=== PATIENT | female | born 1960 | race Caucasian/White ===

== ENCOUNTER 2019-02-03 10:40 | Day surgery (SDC) | payer OTHER ==
[2019-02-03 12:32] VITALS: TEMP 98.6; BMI 21.9
[2019-02-03 14:36] VITALS: BP 108/58; PULSE 73
--- NOTE | 2019-02-05 14:22 | PATH ---
Surgical Pathology Report Patient Name: MAYLIN SOLIS [facility]. Rec. #: [id number] /Age/Gender: 1960 (Age: 58) / F Account: [id number] Location: [facility] Taken: 02/03/2019 Received: 02/03/2019 Reported: 02/05/2019 Physicians: Bernie Bay M.D. Specimen(s) Received A: SECOND PORTION DUODENUM B: ANTRUM C: GE JUNCTION D: MIDDLE ESOPHAGUS Clinical History Dysphagia Postoperative diagnosis: Gastritis Final Diagnosis A. SECOND PORTION DUODENUM, BIOPSY: DUODENUM MUCOSA WITH NO SIGNIFICANT PATHOLOGIC CHANGE. NO HISTOLOGIC EVIDENCE OF CELIAC DISEASE. B. GASTRIC ANTRUM, BIOPSY: GASTRIC MUCOSA WITH CHRONIC GASTRITIS. IMMUNOSTAIN FOR H. PYLORI IS NEGATIVE. NEGATIVE FOR INTESTINAL METAPLASIA. C. GE JUNCTION, BIOPSY: COLUMNAR (GASTRIC) EPITHELIUM WITH MILD CHRONIC INFLAMMATION. NEGATIVE FOR INTESTINAL METAPLASIA. D. MID ESOPHAGUS, BIOPSY: ESOPHAGEAL MUCOSA WITH NO SIGNIFICANT PATHOLOGIC CHANGE. NO HISTOLOGIC EVIDENCE OF EOSINOPHILIC ESOPHAGITIS. Electronically Signed Angely Pennington M.D. Gross Description A. Received in formalin, labeled "biopsy second portion of duodenum" is a figueroa, irregular portion of soft tissue measuring 0.4 cm. in greatest dimension. The specimen is submitted in toto in one cassette. B. Received in formalin, labeled "biopsy gastric antrum" is a figueroa, irregular portion of soft tissue measuring 0.3 cm. in greatest dimension. The specimen is submitted in toto in one cassette. C. Received in formalin, labeled "biopsy GE junction" is a figueroa, irregular portion of soft tissue measuring 0.5 cm. in greatest dimension. The specimen is submitted in toto in one cassette. D. Received in formalin, labeled "biopsy midesophagus" is a figueroa, irregular portion of soft tissue measuring 0.3 cm. in greatest dimension. The specimen is submitted in toto in one cassette. 02/04/2019 saudi02/04/2019
== END 2019-02-03 14:25 | disposition home or self-care (01) ==
LOC: FASU-ENDO 10:40
PROVIDERS: ATTEND Internal Medicine Gastroenterology
PROC: 0DB68ZX Excision of Stomach, Via Natural or Artificial Opening Endoscopic, Diagnostic (ICD-10-PCS; 2019-02-03)
PROC: 0DB48ZX Excision of Esophagogastric Junction, Via Natural or Artificial Opening Endoscopic, Diagnostic (ICD-10-PCS; 2019-02-03)
PROC: 0DB98ZX Excision of Duodenum, Via Natural or Artificial Opening Endoscopic, Diagnostic (ICD-10-PCS; principal; 2019-02-03 13:32)
DX: K29.50 Unspecified chronic gastritis without bleeding (principal); K20.9 Esophagitis, unspecified; R10.13 Epigastric pain; R13.10 Dysphagia, unspecified
CPT/HCPCS: 88305-TC; 88342-TC

== ENCOUNTER 2019-03-17 09:55 | Day surgery (SDC) | payer OTHER ==
[2019-02-01 16:39] VITALS: BMI 21.9
[2019-03-17 10:32] VITALS: TEMP 97.4
[2019-03-17] MEDS ORDERED: PROPOFOL 20 ML ONE ×2 (10:54)
[2019-03-17 11:42] VITALS: BP 106/66; PULSE 88
--- NOTE | 2019-03-19 15:42 | PATH ---
Surgical Pathology Report Patient Name: MAYLIN SOLIS [facility]. Rec. #: [id number] /Age/Gender: 1960 (Age: 58) / F Account: [id number] Location: [facility] Taken: 03/17/2019 Received: 03/17/2019 Reported: 03/19/2019 Physicians: Bernie Bay M.D. Specimen(s) Received A: RIGHT COLON B: TRANSVERSE COLON C: LEFT COLON D: RECTUM Clinical History Abdominal pain, loose stools Postoperative diagnosis: Diverticulosis, hemorrhoids Final Diagnosis A. COLON, RIGHT, BIOPSY: COLONIC MUCOSA WITH SMALL LYMPHOID AGGREGATE. B. TRANSVERSE COLON, BIOPSY: COLONIC MUCOSA WITHOUT SIGNIFICANT PATHOLOGIC FINDINGS. C. COLON, LEFT, BIOPSY: COLONIC MUCOSA WITHOUT SIGNIFICANT PATHOLOGIC FINDINGS. D. RECTUM, BIOPSY: COLONIC MUCOSA WITH MILD LAMINA PROPRIA HEMORRHAGE. Electronically Signed Bernie Williamson M.D. Gross Description A. Received in formalin, labeled "biopsy right colon" is a figueroa, irregular portion of soft tissue measuring 0.3 cm. in greatest dimension. The specimen is submitted in toto in one cassette. B. Received in formalin, labeled "biopsy transverse colon" is a figueroa, irregular portion of soft tissue measuring 0.2 cm. in greatest dimension. The specimen is submitted in toto in one cassette. C. Received in formalin, labeled "biopsy left colon" is a figueroa, irregular portion of soft tissue measuring 0.4 cm. in greatest dimension. The specimen is submitted in toto in one cassette. D. Received in formalin, labeled "biopsy rectum" is a figueroa, irregular portion of soft tissue measuring 0.3 cm. in greatest dimension. The specimen is submitted in toto in one cassette. 03/18/2019 saudi03/18/2019
== END 2019-03-17 11:50 | disposition home or self-care (01) ==
LOC: FASU-ENDO 09:55
PROVIDERS: ATTEND Internal Medicine Gastroenterology
PROC: 0DBL8ZX Excision of Transverse Colon, Via Natural or Artificial Opening Endoscopic, Diagnostic (ICD-10-PCS; 2019-03-17)
PROC: 0DBP8ZX Excision of Rectum, Via Natural or Artificial Opening Endoscopic, Diagnostic (ICD-10-PCS; 2019-03-17)
PROC: 0DBM8ZX Excision of Descending Colon, Via Natural or Artificial Opening Endoscopic, Diagnostic (ICD-10-PCS; 2019-03-17)
PROC: 0DBK8ZX Excision of Ascending Colon, Via Natural or Artificial Opening Endoscopic, Diagnostic (ICD-10-PCS; principal; 2019-03-17 10:53)
DX: K57.30 Diverticulosis of large intestine without perforation or abscess without bleeding (principal); K64.8 Other hemorrhoids; K64.1 Second degree hemorrhoids
CPT/HCPCS: 88305-TC

== ENCOUNTER 2020-12-01 04:31 | Day surgery (SDC) | payer OTHER ==
[2020-11-29 11:04] VITALS: BMI 21.9
[2020-12-01] MEDS ORDERED: LIDOCAINE HCL/PF 1% SDV 5ML VIAL ONE (07:10)
[2020-12-01] MEDS ORDERED: TRIAMCINOLONE ACET 40MG/1ML VIAL ONE (07:10)
[2020-12-01] MEDS ORDERED: BUPIVACAINE HCL/PF 0.75% 10 ML VIAL ONE (07:10)
[2020-12-01] MEDS ORDERED: DEXAMETHASONE SOD PHOSPHATE 10 MG/1 ML VIAL ONE (07:10)
[2020-12-01] MEDS ORDERED: LIDOCAINE 1% P/F 10 MG/ML VIAL INF ONE (08:36)
[2020-12-01] MEDS ORDERED: BUPIVACAINE HCL/PF 0.75% 10 ML VIAL NR ONE (08:38)
[2020-12-01] MEDS ORDERED: IOHEXOL 180 MG/1 ML ML IJ ONE (08:39)
[2020-12-01 09:47] VITALS: BP 129/71; PULSE 60; TEMP 97.3
== END 2020-12-01 09:10 | disposition home or self-care (01) ==
LOC: JASU-SURG 04:31
PROVIDERS: ATTEND Pain Medicine Pain Medicine
PROC: BR16YZZ Fluoroscopy of Lumbar Facet Joint(s) using Other Contrast (ICD-10-PCS; 2020-12-01)
PROC: 3E0T3BZ Introduction of Anesthetic Agent into Peripheral Nerves and Plexi, Percutaneous Approach (ICD-10-PCS; principal; 2020-12-01 08:15)
DX: M47.816 Spondylosis without myelopathy or radiculopathy, lumbar region (principal)
CPT/HCPCS: 76000-TC-FY; J1100